=== PATIENT | female | born 1980 | race Caucasian/White ===

== ENCOUNTER → 2021-09-07 | Outpatient (CLI) | payer BC ==
[~2021-09-07] MED LIST: FOLIC ACID 11 MG/TA1; LOVENOX 3030 MG/0.3; MOTRIN 600600 MG/TAB PO; PRENATAL1 TA1; VITAMIN D 400400 IU
== END ==
LOC: MC.RAD 16:35
DX: Z12.31 Encounter for screening mammogram for malignant neoplasm of breast (principal)